=== PATIENT | female | born 1955 | race Caucasian/White ===

== ENCOUNTER → 2016-06-23 | Outpatient (CLI) | payer MEDICARE, OTHER ==
[~2016-06-23] MED LIST: AMBIEN PO; CELEXA PO; HYDROCODON-ACE1 EAC9 PO; NABUMETONE PO; OYSTER CALCIUM500 MG PO; PERCOCET PO; RESTORIL15 MG PO; TYLENOL #3 PO; VOLTAREN75 MG PO; ZESTRIL10 M2 PO; ZOLOFT PO; ZOLOFT100 MG PO
--- NOTE | ~2016-06-23 | MY11 ---
[facility] A Service of [facility] RADIOLOGY TEXT RESULTS PATIENT: BEVERLY JAMISON LOCATION: [facility] : 51 UNIT #: [id number] AGE: [address]: Victor M Wesley MD SEX: F ORDER DR: [id number] [facility] [address] [place], [place] [address] [id number] O MR#: [id number] Acc #: [id number] NAME: BEVERLY JAMISON : 1955 SEX: F STUDY DATE/TIME: 06/23/2016 10:18 UNIT: [facility] ROOM: STUDY DESCRIPTION: MY Mammogram Screening Dig [facility] Attending Physician: Victor M Wesley Jr., M.D. Ordering Physician: Victor M Wesley Jr., M.D. Primary Care Physician: Victor M Wesley Jr., M.D. MEDICAL IMAGING REPORT This report is preliminary unless electronic signature is present EXAM Digital screening mammogram, 06/23/2016. HISTORY 61-year-old woman; no risk elevation. Annual screen. COMPARISON None. Unable to locate prior mammograms. FINDINGS Digital imaging of each breast was completed, utilizing screening protocol. Review includes FDA-approved CAD device. Breast parenchyma is fatty replaced. Single benign calcification noted, central right breast. There is no breast mass. There are no suspicious microcalcifications and no architectural deformity. IMPRESSION Negative mammogram. Annual screening recommended. Patients over the age of 40 are entered into a reminder system with target due date for the next mammogram. A result letter will also be sent to the patient. BIRADS: 1 Negative Dictated by... Dariel Harrington M.D. THIS IS AN ELECTRONICALLY VERIFIED REPORT Dariel Harrington M.D. at 06/23/2016 12:15 PM [facility] A Service of [facility] RADIOLOGY TEXT RESULTS PATIENT: BEVERLY JAMISON LOCATION: [facility] : 51 UNIT #: [id number] AGE: [address]: Victor M Wesley MD SEX: F ORDER DR: ZAKIA/andrea TD: 06/23/2016 11:45 JOB #: [id number] MEDICAL IMAGING REPORT Page 1 of 1 COPY
== END | disposition home or self-care (01) ==
LOC: CWCC 09:58
DX: Z12.31 Encounter for screening mammogram for malignant neoplasm of breast (principal)
CPT/HCPCS: G0202